=== PATIENT | female | born 1980 | race Caucasian/White ===

== ENCOUNTER 2019-07-28 15:31 | Inpatient (IN) | payer BC, OTHER ==
[~2019-07-28] VITALS: Ht 167.6 cm; Wt 66.0 kg
--- NOTE | 2019-07-28 16:21 | NUR ---
CONFIGURATION MANAGER: PT TO US, THEN WILL GO TO ROOM. JOLANTA
--- NOTE | 2019-07-28 16:28 | NUR ---
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
--- NOTE | 2019-07-28 17:00 | NUR ---
XR AT BS
--- NOTE | 2019-07-28 17:38 | NUR ---
LYING QUIETLY ON BED, TYPING ON CELL PHONE. PT RT HANDED, STATES SHE TRIPPED OVER A SKATEBOARD, LANDED ON [employer]. LT ARM: ECCHYMOSIS FROM UPPER BICEP TO FINGERTIPS, DEFORMITY TO LATERAL FOREARM, SKIN INTACT, C/O NUMBNESS TO FINGERS. + ROM FINGERS/WRIST/ELBOW/SHOULDER. Addendum: 07/28/19 at 1748 by MELONY STATES FALL HAPPENED TWO WEEKS AGO
[2019-07-28] MEDS ORDERED: FLUO20CA19 PO (17:43)
[2019-07-28] MEDS ORDERED: LAMO50TA PO (17:43)
[2019-07-28] MEDS ORDERED: TRAM50TA2 PO (17:47)
--- NOTE | 2019-07-28 17:56 | NUR ---
PT REPORT TO JULIEN NARAYANAN RN. PT CARE TRANSFERRED. PT AWAITING CT.
[2019-07-28] MEDS ORDERED: OXYcodone/APAP 5/325MG TABLET PO ONE (18:00)
[2019-07-28] MEDS ORDERED: SODIUM CHLORIDE 0.9% 1,000 ML IV ONE (19:03)
[2019-07-28 19:22] LABS: BASOPHILS # (AUTO) 0.01 x10^3/uL (0-0.1); BASOPHILS % (AUTO) 0 % (0-1); EOSINOPHILS # (AUTO) 0.08 x10^3/uL (0-0.4); EOSINOPHILS % (AUTO) 1 % (1-7); LYMPHOCYTES # (AUTO) 1.96 x10^3/uL (1-3.4); LYMPHOCYTES % (AUTO) 33 % (22-44); MD NO; MEAN CORPUSCULAR HGB CONC 34.4 g/dL (32.4-35.8); MEAN CORPUSCULAR VOLUME 98.9 fL (80-100); MEAN PLATELET VOLUME 7.5 fL (7.4-10.4); MONOCYTES # (AUTO) 0.44 x10^3/uL (0.2-0.8); MONOCYTES % (AUTO) 7 % (2-9); NEUTROPHILS # (AUTO) 3.41 x10^3/uL (1.8-6.8); NEUTROPHILS % (AUTO) 58 % (42-75); PLATELET COUNT 387 x10^3/uL (130-400); RED BLOOD COUNT 4.38 x10^6/uL (3.82-5.3); RED CELL DISTRIBUTION WIDTH 12.1 % (9.6-15.2)
[2019-07-28] MEDS ORDERED: OXYcodone/APAP 5/325MG TABLET ONE (19:22)
[2019-07-28] MEDS ORDERED: HYDROmorphone 2 MG/ML, 1ML ONE (19:22)
--- NOTE | 2019-07-28 19:27 | NUR ---
DISCUSSED TRANSFUSION ORDER W/ DR FORTE. ERP & THIS RN TO PT ROOM. 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
--- NOTE | 2019-07-28 19:28 | NUR ---
PARVEZ WILSON RN, PT WENT OUTSIDE TO LOCK HER CAR.
[2019-07-28] MEDS ORDERED: DESMOPRESSIN 4 MCG/ML IVPush ONE (19:30)
[2019-07-28] MEDS ORDERED: HYDROmorphone 1 MG/ML, 1ML INJ IV ONE (19:30)
[2019-07-28] MEDS ORDERED: SODIUM CHLORIDE FLUSH 10ML SYR IVF ONE (19:30)
[2019-07-28 19:31] LABS: ALANINE AMINOTRANSFERASE 23 U/L (12-78); ANION GAP 8 mmol/L (5-15); CALCIUM 8.9 mg/dL (8.5-10.1); CHLORIDE 108 mmol/L (98-107)
[2019-07-28 19:35] LABS: ALKALINE PHOSPHATASE 62 U/L (45-117); BILIRUBIN,TOTAL 0.6 mg/dL (0.2-1.0); CREATINE KINASE, TOTAL 75 U/L (26-192); CREATININE 0.64 mg/dL (0.55-1.02); TOTAL PROTEIN 7.7 g/dL (6.4-8.2)
--- NOTE | 2019-07-28 19:43 | NUR ---
PT IN ROOM.
[2019-07-28 19:49] LABS: INTERNATIONAL NORMALIZED RATIO 0.89 (0.93-1.1); PROTHROMBIN TIME 9.4 Seconds (9.6-11.5)
--- NOTE | 2019-07-28 20:03 | NUR ---
PERCOCET AND DILAUDID GIVEN PER EMAR. NS HUNG; IV SITE PATENT. PT REPORTS SIGNIFICANT IMPROVEMENT IN PAIN LEVEL.
--- NOTE | 2019-07-28 20:15 | NUR ---
JUAN FROM BLOOD BANK CALLED TO CONFIRM FFP AND CRYOPRECIPITATE ORDER. WILL CONSULT ERP AND CALL JUAN BACK.
--- NOTE | 2019-07-28 20:20 | NUR ---
TRANSFUSION ORDERS DISCUSSED WITH DR FORTE. PT RO RECEIVE FFP AND CRYOPRECIPITATE. VO START WITH [employer]ODUCT IS THAWED FIRST.
[2019-07-28] MEDS ORDERED: hydrALAzine 20 MG/ML, 1ML IVPush PRN (20:30)
--- NOTE | 2019-07-28 20:36 | NUR ---
INFORMED PT OF TRANSFUSION ORDER. PT HESITANT, ASKED TO SPEAK TO DR FORTE. ERP NOTIFIED. DR FORTE TO ROOM W/ THIS RN.
--- NOTE | 2019-07-28 20:40 | NUR ---
Luis Daniel case in [facility] - 07/28/19 at 2041 by MELONY BLOOD TRANSFUSION CONSENT SIGNED BY PT. DYLAN ALMODOVAR FOR FFP WILL BE FAXED TO BLOOD BANK.
--- NOTE | 2019-07-28 20:41 | NUR ---
BLOOD TRANSFUSION CONSENT SIGNED BY PT.
--- NOTE | 2019-07-28 20:46 | NUR ---
PURPLE BLOOD SLIP TUBED TO BLOOD BANK.
--- NOTE | 2019-07-28 20:49 | NUR ---
CALLED JUAN, BLOOD BANK, TO DISCUSS CRYO ORDER. WILL RUN PLASMA FIRST. UNSURE WHEN PT WILL BE TRANSPORTED TO FLOOR, SO WILL CALL JUAN WHEN WE HAVE A BETTER IDEA; PLAN AGREED TO.
[2019-07-28 21:17] VITALS: BP 119/70
--- NOTE | 2019-07-28 21:21 | NUR ---
FFP HUNG, INFUSING AT SLOW DRIP VIA PUMP; IV SITE PATENT.
[2019-07-28 21:33] VITALS: BP 123/76
--- NOTE | 2019-07-28 21:35 | NUR ---
PT RESTING QUIELTY. RESP EVEN & UNLABORED, SPEECH CLEAR, SKIN WNL, VSS. FPP RATE INCREASED TO 100ML/HR VIA PUMP; IV SITE PATENT.
--- NOTE | 2019-07-28 21:39 | NUR ---
CALLED RECEIVING UNIT; RECEIVING RN NOT CURRENTLY AVAILABLE, SHE'LL CALL BACK.
--- NOTE | 2019-07-28 21:41 | NUR ---
CALLED BLOOD BANK RE: CRYO - PT TO BE TRANSFERRED TO FLOOR SOON; WILL LET FLOOR RN START CRYO.
--- NOTE | 2019-07-28 21:57 | NUR ---
PT REPORT TO EDGARD AKINS FOR ROOM 355
[2019-07-28 22:00] VITALS: BP 121/53
--- NOTE | 2019-07-28 22:41 | NUR ---
PER LINDA BURGOS, PT IN [place] HOLDING IV'S AND IV PUMP. TRANSFUSION HELD PER LINDA BURGOS, SO PT COULD GO TO THE BATHROOM.
--- NOTE | 2019-07-28 22:43 | NUR ---
PT RETURNED TO ED ROOM W/ STEADY GAIT. TRANSFUSION RE-STARTED.
--- NOTE | 2019-07-28 22:45 | NUR ---
PT TRANSFERRED TO UNIT PER DAVID. ALL BELONGINGS SENT W/ PT
[2019-07-28 22:55] VITALS: BP 131/92
[2019-07-28] MEDS: ONDANSETRON 2MG/ML, 2ML IVPush PRN (23:22)
[2019-07-28] MEDS: morphine SULFATE 10 MG/ML, 1ML IVPush PRN (23:23)
[2019-07-28 23:45] VITALS: BP 124/83
[2019-07-29 00:34] VITALS: BP 112/74
[2019-07-29 00:52] VITALS: BP 113/73
[2019-07-29] MEDS: OXYcodone IR 5MG TABLET PO PRN ×2 (01:04→08:23)
[2019-07-29] MEDS: POTASSIUM CHLORIDE 20 MEQ, MAGNESIUM SULFATE 2 GM, THIAMINE 200 MG, MVI ADULT 10 ML, FO... IV SCH (01:04)
[2019-07-29 01:10] VITALS: BP 122/76
[2019-07-29] MEDS: LORazepam 1MG TABLET PO PRN ×2 (02:28→18:06)
[2019-07-29 05:20] LABS: BASOPHILS # (AUTO) 0.02 x10^3/uL (0-0.1); BASOPHILS % (AUTO) 1 % (0-1); EOSINOPHILS % (AUTO) 2 % (1-7); LYMPHOCYTES # (AUTO) 2.02 x10^3/uL (1-3.4); LYMPHOCYTES % (AUTO) 36 % (22-44); MD NO; MEAN CORPUSCULAR HEMOGLOBIN 33.7 pg (27.0-34.8); MEAN CORPUSCULAR VOLUME 99.2 fL (80-100); MEAN PLATELET VOLUME 7.6 fL (7.4-10.4); MONOCYTES # (AUTO) 0.51 x10^3/uL (0.2-0.8); MONOCYTES % (AUTO) 9 % (2-9); NEUTROPHILS # (AUTO) 2.92 x10^3/uL (1.8-6.8); NEUTROPHILS % (AUTO) 52 % (42-75); PLATELET COUNT 293 x10^3/uL (130-400); RED BLOOD COUNT 3.57 x10^6/uL (3.82-5.3); RED CELL DISTRIBUTION WIDTH 12.2 % (9.6-15.2)
[2019-07-29 05:35] LABS: CHLORIDE 108 mmol/L (98-107)
[2019-07-29] MEDS: morphine SULFATE 10 MG/ML, 1ML IVPush PRN (05:41)
[2019-07-29] MEDS: ONDANSETRON 2MG/ML, 2ML IVPush PRN ×2 (05:41→10:32)
[2019-07-29 05:44] LABS: ALANINE AMINOTRANSFERASE 19 U/L (12-78); ALBUMIN 3.3 g/dL (3.4-5.0); ALKALINE PHOSPHATASE 51 U/L (45-117); ANION GAP 9 mmol/L (5-15); BILIRUBIN,TOTAL 0.9 mg/dL (0.2-1.0); CALCIUM 7.7 mg/dL (8.5-10.1); CREATININE 0.51 mg/dL (0.55-1.02); TOTAL PROTEIN 6.4 g/dL (6.4-8.2)
[2019-07-29 07:19] VITALS: BP 114/75
[2019-07-29] MEDS: SENNA/DOCUSATE TABLET PO SCH (08:22)
[2019-07-29] MEDS: ACETAMINOPHEN 325 MG TABLET PO PRN (08:22)
[2019-07-29 11:23] LABS: OPIATE SCREEN, URINE Positive (Negative)
[2019-07-29 11:25] LABS: HCG UR SG 1.013 (1.003-1.030)
[2019-07-29 12:01] LABS: AMPHETAMINE SCREEN, URINE Negative (Negative); BARBITURATE SCREEN, URINE Negative (Negative); BENZODIAZEPINE SCREEN, URINE Negative (Negative); CANNABINOID SCREEN, URINE Negative (Negative); COCAINE SCREEN, URINE Negative (Negative); METHADONE SCREEN, URINE Negative (Negative)
[2019-07-29] MEDS: HYDROmorphone 1 MG/ML, 1ML INJ IV PRN ×3 (12:15→21:52)
[2019-07-29] MEDS: PROMETHAZINE 25 MG/ML, 1ML IM PRN (12:46)
[2019-07-29 15:26] VITALS: BP 120/78
[2019-07-29] MEDS ORDERED: HYDROmorphone 2 MG/ML, 1ML ONE ×2 (16:08→21:43)
[2019-07-29 19:17] VITALS: BP 109/69
[2019-07-30 01:16] VITALS: BP 111/66
[2019-07-30] MEDS: POTASSIUM CHLORIDE 20 MEQ, MAGNESIUM SULFATE 2 GM, THIAMINE 200 MG, MVI ADULT 10 ML, FO... IV SCH ×2 (01:19→11:16)
[2019-07-30] MEDS: ACETAMINOPHEN 325 MG TABLET PO PRN (01:54)
[2019-07-30] MEDS: HYDROmorphone 1 MG/ML, 1ML INJ IV PRN ×3 (02:24→13:46)
[2019-07-30 07:34] VITALS: BP 132/82
[2019-07-30] MEDS: SENNA/DOCUSATE TABLET PO SCH (08:36)
[2019-07-30] MEDS: PROMETHAZINE 25 MG/ML, 1ML IM PRN (08:45)
[2019-07-30] MEDS: morphine SULFATE 10 MG/ML, 1ML IVPush PRN (11:43)
[2019-07-30] MEDS: ONDANSETRON 2MG/ML, 2ML IVPush PRN (13:47)
[2019-07-30] MEDS: LORazepam 1MG TABLET PO PRN (14:49)
[2019-07-30 15:43] VITALS: BP 132/88
[2019-07-31] MEDS ORDERED: POTASSIUM CHLORIDE 20 MEQ, MAGNESIUM SULFATE 2 GM, THIAMINE 200 MG, MVI ADULT 10 ML, FO... IV SCH (01:00)
== END 2019-07-30 17:31 | disposition home or self-care (01) | DRG 74 ==
LOC: ED 20:05 → EDIP 20:11 → ED 20:21 → 3N 22:40
PROVIDERS: ADMIT Family Medicine; ATTEND Family Medicine
PROC: 0H9DXZX Drainage of Right Lower Arm Skin, External Approach, Diagnostic (ICD-10-PCS; principal; 2019-07-29)
PROC: 30233M1 Transfusion of Nonautologous Plasma Cryoprecipitate into Peripheral Vein, Percutaneous Approach (ICD-10-PCS; 2019-07-29)
DX: S54.10XA Injury of median nerve at forearm level, unspecified arm, initial encounter (principal); D68.0 Von Willebrand disease; F10.129 Alcohol abuse with intoxication, unspecified; S40.021A Contusion of right upper arm, initial encounter; W01.0XXA Fall on same level from slipping, tripping and stumbling without subsequent striking against object, initial encounter; Y93.89 Activity, other specified; Y92.098 Other place in other non-institutional residence as the place of occurrence of the external cause; Y99.8 Other external cause status; Z91.013 Allergy to seafood
CPT/HCPCS: 10030; 36415; 73090; 99291; J7042; 80053; 80307; 81025; 82550; 83605; 83735; 84100; 85025; 85384; 85610; 86850; 86900; G0378; J1170; J2405; J2550; J3411; J3475; J3480; J2270; J7030; P9017

== ENCOUNTER 2020-10-09 18:32 | Emergency (ER) | payer BC ==
[~2020-10-09] VITALS: Ht 167.6 cm; Wt 69.5 kg
[~2020-10-09 18:32] MED LIST: FLUO20CA19 PO; LAMO50TA PO; TRAM50TA2 PO
[2020-10-09 18:36] VITALS: BP 130/88
--- NOTE | 2020-10-09 18:58 | NUR ---
PT AMBULATES FROM TRIAGE TO ROOM WITH STEADY GAIT.
[2020-10-09] MEDS ORDERED: FLUORESCEIN OPHTHALMIC 1 MG STRIP ONE (19:36)
--- NOTE | 2020-10-09 19:44 | NUR ---
MED REQUEST TUBED TO LAB AT THIS TIME.
--- NOTE | 2020-10-09 20:20 | NUR ---
PT ASKING FOR ALCOHOL DETOX RESOURCES. [facility] CALLED FOR AVAILABILITY OF BED AT THIS TIME WITH AVAILABILITY GIVEN. PT REFUSES AND STATES "I WILL BE IF I GO TO THAT FACILITY". PT STATES "I WANT TO BE ADMITTED HERE". WHEN ASKED FOR PT TO WAIT IN HER ROOM UNTIL A DOCTOR COULD BE LOCATED, PT GOT IRATE AND STORMED OUT OF FACILITY SAYING "FUCK YOU GUYS, I'LL GO TO [facility]". DR RONDON NOTIFIED OF PT ELOPEMENT.
[2020-10-09] MEDS ORDERED: VALACYCLOVIR 500MG TABLET PO ONE (20:30)
== END 2020-10-09 21:39 | disposition left against medical advice (07) ==
LOC: ED 21:38
DX: B02.9 Zoster without complications (principal); F10.220 Alcohol dependence with intoxication, uncomplicated; R00.0 Tachycardia, unspecified; Y90.0 Blood alcohol level of less than 20 mg/100 ml
CPT/HCPCS: 99283